=== PATIENT | female | born 1995 | race Two or more races ===

== ENCOUNTER 2021-04-25 12:06 | Emergency (ER) | payer MEDICAID, OTHER ==
[~2021-04-25] VITALS: Ht 160 cm; Wt 69.4 kg
[2021-04-25 15:15] VITALS: BP 122/74
[2021-04-25] MEDS ORDERED: TETRACAINE HCL 0.5% OPTH(EYE) SOLN 4ML RIGHTEYE ONE (15:15)
[2021-04-25] MEDS ORDERED: FLUORESCEIN SOD OPTH TEST STRIP EACHEYE ONE (15:15)
== END 2021-04-25 15:43 | disposition home or self-care (01) ==
LOC: ER 12:06 → EDBD 12:06 → ER 15:43
DX: H57.11 Ocular pain, right eye (principal)